=== PATIENT | male | born 1990 | race Caucasian/White ===

== ENCOUNTER 2018-06-14 08:49 | Emergency (ER) | payer OTHER ==
--- NOTE | 2018-06-14 10:17 | CR ---
Chest: Two views of the chest were obtained. Comparison: No prior chest x-ray. Heart size and mediastinum are normal. Previous sternotomy is seen. Lungs are clear with no acute parenchymal change. Bony structures are grossly intact. Impression: 1. Nothing acute is seen on portable chest x-ray. Diagnostic code #2
--- NOTE | 2018-06-14 11:43 | EDM.PDOC ---
<Jessica Hernandez M - Last Filed: 06/14/18 11:48> ED HPI GENERAL MEDICAL PROBLEM - General Chief Complaint: Chest Pain Stated Complaint: CHEST PAIN OFF AND ON SINCE LAST NIGHT Time Seen by Provider: 06/14/18 11:10 Source of Information: Reports: Patient, RN Notes Reviewed History Limitations: Reports: No Limitations - History of Present Illness INITIAL COMMENTS - FREE TEXT/NARRATIVE: Reji is a 28 year old male who presents to the ED for evaluation of a sensation in his chest that has been occurring since last evening. Patient states that when he would roll over in bed he would feel as if a "warm glove" was pressing on his chest, and that his heart would beat harder and faster. This would last 5-10 seconds and subside, and return with rolling over again. Patient states the sensation returned this morning when stretching, and became more constant while at work today. 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 Patient states this sensation is stronger when taking a deep breath and with exertion. It is relieved with rest, lying forward, and lying flat. He states with deep inspiration there is a pressure in his throat. The sensation is very minor at this time. Patient had a ASD repair 11 weeks ago, and is very concerned that this may be precursor signs to an [place]. He states "this is a learning curve for me since my heart is finally working properly". He thinks this may be a normal sensation, but isn't sure. He is quite anxious about this. Chest Pain Score (Numeric/FACES): 7 - Related Data Allergies Allergy/AdvReac Type Severity Reaction Status Date / Time No Known Allergies Allergy Verified 06/14/18 09:05 Past Medical History - Past Surgical History Cardiovascular Surgical History: Reports: Other (See Below) Other Cardiovascular Surgeries/Procedures: open heart surgery to fix septal defect Social & Family History - Tobacco Use Smoking Status *Q: Never Smoker - Caffeine Use Caffeine Use: Reports: None - Recreational Drug Use Recreational Drug Use: No ED ROS GENERAL - Review of Systems Review Of Systems: See Below Constitutional: Reports: No Symptoms HEENT: Reports: Throat Pain ("pressure" with deep inspiration) Respiratory: Reports: No Symptoms Cardiovascular: Reports: Palpitations (fleeting), Other (warm sensation and pressure substernal/left chest). Denies: Chest Pain, Dyspnea on Exertion, Edema , Lightheadedness Endocrine: Reports: No Symptoms GI/Abdominal: Reports: Diarrhea. Denies: Abdominal Pain, Bloody Stool : Reports: No Symptoms Musculoskeletal: Reports: No Symptoms Skin: Reports: No Symptoms Neurological: Reports: No Symptoms Psychiatric: Reports: Anxiety ED EXAM, GENERAL - Physical Exam Exam Limited By: No Limitations General Appearance: Alert, WD/WN, Anxious Eye Exam: Bilateral Eye: Normal Inspection, PERRL Ears: Hearing Grossly Normal Throat/Mouth: Normal Inspection, Normal Lips, Normal Voice Head: Atraumatic, Normocephalic Neck: Normal Inspection, Supple, Non-Tender, Full Range of Motion Respiratory/Chest: No Respiratory Distress, Lungs Clear, Normal Breath Sounds, Chest Non-Tender Cardiovascular: Normal Peripheral Pulses, Regular Rate, Rhythm, No Gallop, No Murmur, No Rub. No: Friction Rub Peripheral Pulses: 4+: Radial (L), Radial (R) GI/Abdominal: Soft, Non-Tender, No Distention, No Mass Extremities: Normal Inspection, Normal Capillary Refill Neurological: Alert, Oriented, Normal Cognition Psychiatric: Normal Affect, Anxious Skin Exam: Warm, Dry, Intact, No Rash Course - Vital Signs Last Recorded V/S: Last Vital Signs Temp 96.8 F 06/14/18 12:59 Pulse 75 06/14/18 12:59 Resp 18 06/14/18 12:59 BP 112/75 06/14/18 12:59 Pulse Ox 100 06/14/18 12:59 - Orders/Labs/Meds Orders: Active Orders 24 hr Category Date Time Status EKG Documentation Completion [RC] ASDIRECTED Care 06/14/18 09:07 Active EKG 12 Lead [EK] Stat Ther 06/14/18 09:07 Ordered Labs: Laboratory Tests 06/14/18 06/14/18 06/14/18 Range/Units 09:11 09:11 09:11 WBC 7.52 (4.23-9.07) K/mm3 RBC 5.30 (4.63-6.08) M/mm3 Hgb 15.4 (13.7-17.5) gm/L Hct 45.9 (40.1-51.0) % MCV 86.6 (79.0-92.2) fl MCH 29.1 (25.7-32.2) pg MCHC 33.6 (32.2-35.5) g/dl RDW Std Deviation 44.5 H (35.1-43.9) fL Plt Count 254 (163-337) K/mm3 MPV 9.0 L (9.4-12.3) fl Neutrophils % (Manual) 78 H (40-60) % Band Neutrophils % 0 (0-10) % Lymphocytes % (Manual) 19 L (20-40) % Atypical Lymphs % 0 % Monocytes % (Manual) 1 L (2-10) % Eosinophils % (Manual) 2 (0.8-7.0) % Basophils % (Manual) 0 L (0.2-1.2) Platelet Estimate Adequate Plt Morphology Comment Normal RBC Morph Comment Normal Sodium 141 (136-145) mEq/L Potassium 4.2 (3.5-5.1) mEq/L Chloride 103 (98-107) mEq/L Carbon Dioxide 28 (21-32) mEq/L Anion Gap 14.2 (5-15) BUN 23 H (7-18) mg/dL Creatinine 1.0 (0.7-1.3) mg/dL Est Cr Clr Drug Dosing 115.04 mL/min Estimated GFR (MDRD) > 60 (>60) mL/min BUN/Creatinine Ratio 23.0 H (14-18) Glucose 89 (74-106) mg/dL Calcium 9.6 (8.5-10.1) mg/dL Magnesium 2.1 (1.8-2.4) mg/dl Total Bilirubin 0.5 (0.2-1.0) mg/dL AST 16 (15-37) U/L ALT 22 (16-63) U/L Alkaline Phosphatase 55 (46-116) U/L Troponin I < 0.017 (0.00-0.056) ng/mL C-Reactive Protein 0.2 (<1.0) mg/dL Total Protein 7.4 (6.4-8.2) g/dl Albumin 4.2 (3.4-5.0) g/dl Globulin 3.2 gm/dL Albumin/Globulin Ratio 1.3 (1-2) TSH 3rd Generation 0.801 (0.358-3.74) uIU/mL - Re-Assessments/Exams Free Text/Narrative Re-Assessment/Exam: Patient's CXR and labs are essentially normal. Negative troponin and normal electrolytes. EKG does show signs of pericarditis. We will add a CRP, Mg+2, and TSH to the lab work to help guide differential diagnosis toward pericarditis or a thyroid abnormality. 06/14/18 11:48 Departure - Departure Disposition: Home, Self-Care 01 Clinical Impression: Intermittent palpitations Instructions: Palpitations, [id number] Referrals: Ermelinda Shrestha, FINANCIAL SERVICES PROFESSIONAL [Primary Care Provider] - Forms: ED Department Discharge Additional Instructions: Echocardiogram July as planned. Follow-up with PCP within 2 weeks for a recheck of your symptoms. Continue with current plan of care. Please return to the ER should your symptoms change or worsen. <Jana Willard - Last Filed: 06/14/18 22:44> ED HPI GENERAL MEDICAL PROBLEM - History of Present Illness INITIAL COMMENTS - FREE TEXT/NARRATIVE: I have seen the patient and agree with the HPI as documented by YEYO Talamantes. ED ROS GENERAL - Review of Systems Review Of Systems: See Below ED EXAM, GENERAL - Physical Exam Exam: See Below Exam Limited By: No Limitations General Appearance: Alert, WD/WN, No Apparent Distress Respiratory/Chest: No Respiratory Distress, Lungs Clear, Normal Breath Sounds Cardiovascular: Normal Peripheral Pulses, Regular Rate, Rhythm, No Murmur EKG INTERPRETATION EKG Date: 06/14/18 Time: 20:57 Rhythm: NSR Rate (Beats/Min): 66 [place]: Normal P-Wave: Present QRS: RBBB QT: Normal EKG Interpretation Comments: NSR at 66 bpm. No AVB. Likely LAE. No ischemic changes, diffuse J-point elevation suggest pericarditics. No LAD/RAD. No LVH. + RBBB. QTc within normal limits with QTc 423. Reviewed by myself and Dr. Gray. Course - Radiology Interpretation Free Text/Narrative:: Chest: Two views of the chest were obtained. Comparison: No prior chest x-ray. Heart size and mediastinum are normal. Previous sternotomy is seen. Lungs are clear with no acute parenchymal change. Bony structures are grossly intact. Impression: 1. Nothing acute is seen on portable chest x-ray. - Re-Assessments/Exams Free Text/Narrative Re-Assessment/Exam: 06/14/18 12:46 I have seen the patient and agree with the HPI, ROS and PE as documented by YEYO Talamantes. Low suspicion for pericarditis, patient is denying pain or any positional component. CRP and WBC are WNLs. He is scheduled to have an echocardiogram beginning of July for follow-up for the ASD closure. Recommend close follow-up with PCP. Patient may also be subclinical hypothyroid causing symptoms. Will discharge home today. Discharge instructions as documented. Departure - Departure Time of Disposition: 12:51 Reason for Transfer *Q: Other Condition: Fair
== END 2018-06-14 12:57 | disposition home or self-care (01) ==
LOC: JD.ED 08:49
DX: R00.2 Palpitations (principal); R07.9 Chest pain, unspecified
CPT/HCPCS: 36415; 71045; 71045-26; 80053; 83735; 84443; 84484; 85007; 85027; 86140; 93005; 93010; 99283; 99285-25